=== PATIENT | female | born 1975 | race Asian ===

== ENCOUNTER 2017-01-05 08:58 | Inpatient (IN) | payer SELFPAY ==
[~2017-01-05] VITALS: Ht 151 cm; Wt 53.5 kg
[2017-01-05] MEDS ORDERED: LR 1,000 ML IV ONE (10:18)
[2017-01-05] MEDS ORDERED: CITRIC ACID/SODIUM CITRATE 30 ML UDC PO ONE (10:30)
[2017-01-05] MEDS ORDERED: CEFAZOLIN 2 GM IVPB PREMIX 50 ML IV ONE (10:30)
[2017-01-05 11:15] LABS: BASOPHILS % (AUTO) 0.2 % (0.0-2.0); EOSINOPHILS # (AUTO) 0.1 K/uL (0.0-0.4); HEMATOCRIT 36.8 % (36-48); HEMOGLOBIN 12.4 g/dL (12.0-16.0); LYMPHOCYTES % (AUTO) 11.8 % (20.5-51.5); MEAN CORPUSCULAR HEMOGLOBIN 33 pg (27-31); MEAN CORPUSCULAR HGB CONC 34 % (32-36); MEAN CORPUSCULAR VOLUME 97 fL (79.0-98.0); MONOCYTES # (AUTO) 0.8 K/uL (0.0-1.0); MONOCYTES % (AUTO) 8.9 % (1.7-9.3); NEUTROPHILS # (AUTO) 6.8 K/uL (1.8-7.7); NEUTROPHILS % (AUTO) 78.1 % (40.0-70.0); PLATELET COUNT (AUTO) 168 K/uL (130-430); RED BLOOD CELL COUNT(AUTO) 3.81 MIL/uL (4.2-6.2); RED CELL DISTRIBUTION WIDTH 15.8 % (9.0-15.0); WHITE BLOOD COUNT (AUTO) 8.7 K/uL (4.8-10.8)
[2017-01-05] MEDS ORDERED: LR 1,000 ML IV.SOLN IV ONE (12:00)
[2017-01-05] MEDS ORDERED: NORMAL SALINE 10 ML VIAL IVP ONE (12:00)
[2017-01-05] MEDS ORDERED: OXYTOCIN 10 UNIT/ML VIAL IV ONE (12:00)
[2017-01-05] MEDS ORDERED: MIDAZOLAM HCL 5 MG/5 ML VIAL IVP ONE (12:00)
[2017-01-05] MEDS ORDERED: ONDANSETRON HCL 4 MG/2 ML VIAL IVP ONE (12:00)
[2017-01-05] MEDS ORDERED: NS IRRIG SOLN 1000 ML IR ONE (12:00)
[2017-01-05] MEDS ORDERED: BUPIVACAINE /PF 0.75% 10 ML VIAL INJ ONE (12:00)
[2017-01-05] MEDS ORDERED: TRIAMCINOLONE ACETONIDE 40 MG/ML IM ONE (12:00)
[2017-01-05] MEDS ORDERED: MORPHINE SULFATE 10MG/10ML PF AMP EP ONE (12:00)
[2017-01-05] MEDS ORDERED: LR 1,000 ML IV SCH (12:40)
[2017-01-05] MEDS ORDERED: METOCLOPRAMIDE HCL 10 MG/2 ML VIAL IVP PRN (12:45)
[2017-01-05] MEDS ORDERED: ONDANSETRON HCL 4 MG/2 ML VIAL IVP PRN (13:00)
[2017-01-05] MEDS ORDERED: NALOXONE HCL 0.4 MG/ML AMP (NARCAN) IVP PRN (13:00)
[2017-01-05] MEDS ORDERED: DIPHENHYDRAMINE INJ 50 MG/ML VIAL IM PRN (13:00)
[2017-01-05] MEDS ORDERED: MORPHINE SULFATE 10MG/10ML PF AMP SP SCH (13:00)
[2017-01-05] MEDS ORDERED: MORPHINE SULFATE 10MG/10ML PF AMP EP SCH (13:00)
[2017-01-05] MEDS ORDERED: KETOROLAC TROMETHAMINE 60 MG/2 ML VIAL IM PRN (13:00)
[2017-01-05] MEDS ORDERED: OXYTOCIN/NORMAL SALINE 1,000 ML IV ONE (13:23)
[2017-01-05] MEDS ORDERED: ANUSOL 1 EA SUPP.RECT (PREPARATION H) RC PRN (13:30)
[2017-01-05] MEDS ORDERED: HYDROcodone/ACETAMIN 5-325 MG TAB (NORCO/ VICODIN) PO PRN (13:30)
[2017-01-05] MEDS ORDERED: MEASLES,MUMPS&RUBELLA VACC/PF 12500 UNIT/0.5 ML VIAL SUBQ PRN (13:30)
[2017-01-05] MEDS ORDERED: OXYCODONE/ACETAMINOPHEN 5-325 TABLET PO PRN ×2 (13:30)
[2017-01-05] MEDS ORDERED: LANOLIN 7 GM OINT. TP PRN (13:30)
[2017-01-05] MEDS: CEFAZOLIN 1 GM IVPB PREMIX 50 ML IV SCH ×2 (18:00→23:30)
[2017-01-05 18:34] VITALS: BP 97/67; PULSE 84; RESP 17; TEMP 98
[2017-01-05] MEDS ORDERED: TEMAZEPAM 15 MG CAPSULE PO PRN (21:00)
[2017-01-06] MEDS: IBUPROFEN 600 MG TABLET PO SCH ×4 (05:54→23:34)
[2017-01-06] MEDS: CEFAZOLIN 1 GM IVPB PREMIX 50 ML IV SCH ×2 (06:30)
[2017-01-06] MEDS ORDERED: CEFAZOLIN 1 GM IVPB PREMIX 50 ML IV ONE (06:38)
[2017-01-06 07:23] LABS: HEMATOCRIT 32.8 % (36-48); HEMOGLOBIN 11.1 g/dL (12.0-16.0); MEAN CORPUSCULAR HEMOGLOBIN 33 pg (27-31); MEAN CORPUSCULAR HGB CONC 34 % (32-36); MEAN CORPUSCULAR VOLUME 97 fL (79.0-98.0); PLATELET COUNT (AUTO) 155 K/uL (130-430); RED BLOOD CELL COUNT(AUTO) 3.39 MIL/uL (4.2-6.2); RED CELL DISTRIBUTION WIDTH 15.3 % (9.0-15.0)
[2017-01-06 10:30] LABS: BAND % (MANUAL) 3 % (0-6); LYMPHOCYTES % (MANUAL) 6 % (20-46); MONOCYTES % (MANUAL) 6 % (0-11)
[2017-01-06 10:31] LABS: BASOPHILS % (MANUAL) 0 % (0-2); EOSINOPHILS % (MANUAL) 0 % (0-7)
[2017-01-06] MEDS: DOCUSATE SODIUM 100 MG CAPSULE PO PRN (22:51)
[2017-01-06] MEDS: SIMETHICONE 80 MG TAB.CHEW PO PRN (22:52)
[2017-01-07] MEDS: IBUPROFEN 600 MG TABLET PO SCH ×2 (06:03→12:35)
[2017-01-07] MEDS: DOCUSATE SODIUM 100 MG CAPSULE PO PRN (12:33)
[2017-01-07] MEDS: SIMETHICONE 80 MG TAB.CHEW PO PRN (12:33)
== END 2017-01-07 16:10 | disposition home or self-care (01) | DRG 766 ==
LOC: SPU 08:58
PROVIDERS: ADMIT Obstetrics & Gynecology; ATTEND Obstetrics & Gynecology
PROC: 0UB70ZZ Excision of Bilateral Fallopian Tubes, Open Approach (ICD-10-PCS; 2017-01-05)
PROC: 3E0134Z Introduction of Serum, Toxoid and Vaccine into Subcutaneous Tissue, Percutaneous Approach (ICD-10-PCS; 2017-01-05)
PROC: 10D00Z1 Extraction of Products of Conception, Low, Open Approach (ICD-10-PCS; principal; 2017-01-05 12:00)
DX: O34.211 Maternal care for low transverse scar from previous cesarean delivery (principal); O09.523 Supervision of elderly multigravida, third trimester; Z30.2 Encounter for sterilization; Z37.0 Single live birth; Z3A.39 39 weeks gestation of pregnancy; Z23 Encounter for immunization
CPT/HCPCS: 36415; 85007; 85025; 85027; 86886; 86900; 86901; 88302; 94760; J0690; J2250; J2274; J2405; J2590; J3301; J3490; J7120